=== PATIENT | female | born 1945 | race Caucasian/White ===

== ENCOUNTER 2017-10-24 07:20 | Emergency (ER) | payer MEDICARE, OTHER ==
--- NOTE | 2017-10-24 08:31 | RAD ---
RADIOGRAPH LEFT KNEE 4 VIEWS: Date: 10/24/17 Time: 0757 hours HISTORY: 72-year-old female with persistent post-traumatic left knee pain. Injury 3 days ago. FINDINGS: There is no fracture or dislocation. There is a small joint effusion. No high grade DJD. IMPRESSION: 1. No fracture. 2. Small joint effusion. POS: [facility]
== END 2017-10-24 08:17 | disposition home or self-care (01) ==
LOC: SCSER 07:20
DX: M25.562 Pain in left knee (principal); I10 Essential (primary) hypertension; Z87.891 Personal history of nicotine dependence
CPT/HCPCS: 99203; G0463

== ENCOUNTER 2017-11-17 08:53 | Outpatient (CLI) | payer MEDICARE, OTHER ==
--- NOTE | 2017-11-17 13:42 | MRI ---
MRI LEFT KNEE WITHOUT CONTRAST: Date: 11/17/17 HISTORY: M25.562, left knee pain. [place] a pop. COMPARISON: Radiograph dated 10/24/17. FINDINGS: Medial Meniscus: Full thickness radial tear posterior root attachment medial meniscus with subsequent 3.0 mm medial gu tter extrusion. There is extensive degenerative signal throughout the body and posterior horn medial meniscus. Lateral Meniscus: Intact. The anterior cruciate ligament and posterior cruciate ligament are intact. There is abnormal thickening of the medial meniscal and femoral medial meniscal tibial ligaments with out displaced tear. Extensor Mechanism: Quadriceps tendon, patella, and patellar tendon are all intact. Cartilage: There are multifocal full thickness cartilage fissures of the lateral patellar facet and patellar ape x with subchondral edema. There are also multifocal full thickness cartilage fissures of the medial t rochlea. Medial Compartment: Multifocal full thickness cartilage fissuring of the weightbearing surface of medial femoral condyle with subchondral edema. The same is true for the medial tibial plateau. There is also mild chondral f raying. Lateral Compartment: Multifocal 50-75% thickness cartilage fissures of the weightbearing surface of the lateral tibial edna teau. Bones: There is subchondral stress edema of the medial tibial plateau. There is also submeniscal rim medial tibial plateau edema. Small subchondral bone plate fracture of the medial tibial rim, submeniscal. IMPRESSION: 1. Full thickness radial tear of posterior root attachment of medial meniscus with subsequent 3.0 mm medial gutter extrusion. 2. Multifocal near full thickness cartilage loss of the medial compartment along with stress edema o n the medial tibial plateau, as well as a small subchondral fracture in the submeniscal medial tibial rim at the medial meniscal body. 3. Semimembranosus bursitis, as well as leaking popliteal cyst and pes anserine bursitis. 4. 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 5. Moderate size joint effusion. POS: [facility]
== END 2017-11-17 08:54 | disposition home or self-care (01) ==
LOC: SCSMRI 08:53
PROVIDERS: ATTEND Orthopaedic Surgery
DX: M25.562 Pain in left knee (principal)

== ENCOUNTER 2018-02-06 09:37 | Outpatient (CLI) | payer MEDICARE, OTHER | END 2018-02-06 09:38 | disposition home or self-care (01) | LOC: BICMAMMO 09:37 | PROVIDERS: ATTEND Internal Medicine | DX: Z12.31 Encounter for screening mammogram for malignant neoplasm of breast (principal); Z80.3 Family history of malignant neoplasm of breast; Z85.118 Personal history of other malignant neoplasm of bronchus and lung; Z85.850 Personal history of malignant neoplasm of thyroid | CPT/HCPCS: 77063; 77067 ==

== ENCOUNTER 2018-11-06 08:03 | Outpatient (CLI) | payer MEDICARE, OTHER ==
--- NOTE | 2018-11-06 09:10 | RAD ---
RADIOGRAPH CHEST 2 VIEWS: Date: 11/06/2018 Time: 8:14 a.m. HISTORY: A 73-year-old female with pleurisy and pleurodynia. COMPARISON: 08/05/2016 FINDINGS: The plate-like density in the right upper lobe is unchanged. Otherwise, the rest of the lungs are cl ear. No cardiomegaly, pleural effusion, or pneumothorax. No interval change overall. IMPRESSION: 1. Right upper lobe pulmonary scar. 2. Otherwise negative. FRANCI [] POS: [facility]
== END 2018-11-06 08:04 | disposition home or self-care (01) ==
LOC: BICRAD 08:03
PROVIDERS: ATTEND Internal Medicine
DX: R07.81 Pleurodynia (principal); R09.1 Pleurisy; J98.4 Other disorders of lung; Z85.850 Personal history of malignant neoplasm of thyroid
CPT/HCPCS: 71046

== ENCOUNTER 2018-11-14 10:50 | Outpatient (CLI) | payer MEDICARE, OTHER ==
--- NOTE | 2018-11-14 15:43 | NM ---
NUCLEAR MEDICINE BONE SCAN: HISTORY: Lung cancer. Right rib pain. TECHNIQUE: Examination is performed using 29 millicuries technetium 99m MDP, administered intravenously. FINDINGS: Whole body imaging shows some arthritic changes of the left knee, lower lumbar spine, and cervical sp ine. There is no evidence for metastatic disease. Bilateral renal as well as bladder activity is pr esent. IMPRESSION: No evidence for metastatic disease. POS: [facility]
== END 2018-11-14 10:51 | disposition home or self-care (01) ==
LOC: NM 10:50
PROVIDERS: ATTEND Internal Medicine
DX: R07.81 Pleurodynia (principal); Z85.850 Personal history of malignant neoplasm of thyroid
CPT/HCPCS: 78306; A9503

== ENCOUNTER 2019-01-05 08:52 | Emergency (ER) | payer MEDICARE, OTHER ==
[2019-01-05] MEDS ORDERED: Ondansetron PF 4 MG/2 ML Vial ONE (09:18)
[2019-01-05 09:32] LABS: #Basophils 0.1 thou/uL (0.0-0.2); #Lymphocytes 0.8 thou/uL (1.20-3.40); #Monocytes 1.3 thou/uL (0.11-0.59); #Neutrophils 10.7 thou/uL (1.40-6.50); %Basophils 0.6 % (0.0-1.0); %Lymphocytes 5.9 % (21.0-51.0); %Monocytes 9.8 % (0.0-10.0); %Neutrophils 83.7 % (42.0-75.0); Hemoglobin 10.6 g/dL (12.0-16.0); Mean Corpuscular HGB CONC 32.7 g/dL (32.0-36.0); Mean Corpuscular Hemoglobin 28.7 pg (27.0-31.0); Mean Corpuscular Volume 87.7 fL (78.0-98.0); Mean Platelet Volume 6.9 fL (7.4-10.4); Platelet Count 238 thou/uL (130-400); RBC Distribution Width 12.5 % (11.5-14.5); Red Blood Cell (RBC) Count 3.71 mill/uL (4.20-5.40); White Blood Cell (WBC) Count 12.8 thou/uL (4.8-10.8)
[2019-01-05 09:43] LABS: ALT (SGPT) 23 U/L (8-55); AST (SGOT) 23 U/L (5-34); Albumin 3.7 g/dL (3.4-4.8); Alkaline Phosphatase 57 U/L (40-150); Anion Gap 14 mmol/L (10-20); BUN (Urea Nitrogen) 16 mg/dL (9.8-20.1); Bilirubin, Total 0.7 mg/dL (0.2-1.2); Calc. Creatinine Clearance 0 mL/min (70-130); Calcium 9.7 mg/dL (7.8-10.44); Carbon Dioxide 24 mmol/L (23-31); Chloride 96 mmol/L (98-107); Estimated GFR-MDRD 45; Globulin 3.4 g/dL (2.4-3.5); Glucose 111 mg/dL (83-110); Lipase 7 U/L (8-78); Magnesium 1.9 mg/dL (1.6-2.6); Potassium 3.4 mmol/L (3.5-5.1); Protein, Total 7.1 g/dL (6.0-8.3); Sodium 131 mmol/L (136-145)
--- NOTE | 2019-01-05 09:43 | RAD ---
EXAM: Two views chest PROVIDED CLINICAL HISTORY: Cough and chills. History of right lung cancer. COMPARISON: 11/06/2018 at 08/05/2016 FINDINGS: Cardiac silhouette and pulmonary vasculature are within normal limits. Linear area of increased dens ity is again seen in the right upper lobe which is stable when compared to prior studies suggesting scar. The lungs are otherwise clear. The osseous structures have a normal appearance. IMPRESSION: 1. No acute cardiopulmonary process. 2. Stable scarring right upper lobe..
--- NOTE | 2019-01-05 10:21 | ULT ---
Exam: Right upper quadrant ultrasound: HISTORY: Right upper quadrant pain. Patient states nothing by mouth for 2 days. Nausea and loss of appetite. COMPARISON: None FINDINGS: Visualized liver:Within normal limits. Gallbladder:No gallbladder calculi are visualized. There is no gallbladder wall thickening or pericho lecystic fluid. Common bile duct: The common duct measures0.4 cm in diameter which is within normal limits. The limited visualized portions of the pancreas and right kidney as well as visualized portions of th e IVC demonstrate a normal sonographic appearance.. The right kidney [id number] cm in length. IMPRESSION: 1. Right upper quadrant ultrasound is within normal limits. No gallbladder calculi are seen, and the common duct is normal in caliber.
== END 2019-01-05 10:35 | disposition home or self-care (01) ==
LOC: SCSER 08:52
DX: R11.0 Nausea (principal); D64.9 Anemia, unspecified; N17.9 Acute kidney failure, unspecified; R10.11 Right upper quadrant pain; R05 Cough; E78.5 Hyperlipidemia, unspecified; I10 Essential (primary) hypertension; Z87.891 Personal history of nicotine dependence; Z79.899 Other long term (current) drug therapy
CPT/HCPCS: 71046; 76705; 80053; 83690; 83735; 85025; 87804; 96361; 96374; J2405

== ENCOUNTER 2019-01-15 11:19 | Outpatient (CLI) | payer MEDICARE, OTHER ==
--- NOTE | 2019-01-15 12:21 | RAD ---
XR Heel Rt 2 View STANDARD History: [Achilles tendon injury] Comparison: None. Findings: The calcaneus is intact. Small plantar calcaneal spur. Marked thickening of the Achilles te ndon. Impression: Marked thickening of the Achilles tendon suggesting tendinopathy.
== END 2019-01-15 11:20 | disposition home or self-care (01) ==
LOC: BICRAD 11:19
PROVIDERS: ATTEND Podiatrist
DX: S86.001D Unspecified injury of right Achilles tendon, subsequent encounter (principal); M76.61 Achilles tendinitis, right leg

== ENCOUNTER 2019-02-04 07:37 | Outpatient (CLI) | payer MEDICARE, OTHER ==
--- NOTE | 2019-02-04 10:07 | MRI ---
RIGHT ANKLE MRI WITHOUT IV CONTRAST: Date: 02/04/19 HISTORY: Achilles tendinitis, M76.6. TECHNIQUE: Multiplanar, multisequence MRI examination of the left ankle is performed. FINDINGS: There is very marked abnormal thickening of the Achilles tendon, measuring up to approximately 1.4 cm in AP dimension. There is some linear T2 hyperintensity in the interstitial aspect of the tendon ext ending approximately 6.1 cm in craniocaudal dimension, evidence for some interstitial tearing. Minima l anterior peritenon fluid, evident for mild peritendinitis. Small amount of fluid within the retroca lcaneal bursa, which is not overtly distended. The plantar fascia is unremarkable. The flexor, extens or, and peroneus tendons appear intact. Medial and lateral ankle collateral ligament complexes are un remarkable. Minimal degenerative arthrosis changes in the tarsal bones with some multiple small subch ondral cystic foci. IMPRESSION: Very abnormally severely thickened Achilles tendon, evidence for severe tendinopathy, with some longi tudinal interstitial tearing and mild peritenon edema. No evidence for other significant acute editing internship al derangement. Minimal intertarsal degenerative arthrosis with some subchondral cystic changes. POS: [facility]
== END 2019-02-04 07:38 | disposition home or self-care (01) ==
LOC: BICMRI 07:37
PROVIDERS: ATTEND Podiatrist
DX: S86.001A Unspecified injury of right Achilles tendon, initial encounter (principal); M76.62 Achilles tendinitis, left leg; M19.072 Primary osteoarthritis, left ankle and foot; S86.012A Strain of left Achilles tendon, initial encounter; M25.472 Effusion, left ankle; R60.0 Localized edema